=== PATIENT | female | born 1980 | race Caucasian/White ===

== ENCOUNTER → 2018-08-06 16:16 | Outpatient (CLI) | payer OTHER, SELFPAY | DX: Z23 Encounter for immunization (principal) | CPT/HCPCS: 90471; 90686 ==

== ENCOUNTER 2018-09-04 21:50 | Emergency (ER) | payer OTHER, SELFPAY ==
--- NOTE | 2018-09-04 22:01 | DI.CT.S_ITS ---
PROCEDURE: CT ABDOMEN PELVIS W CON INDICATIONS: abdominal pain, history of perforation and gastric bypass TECHNIQUE: After the administration of intravenous contrast, 5 mm thick sections acquired from the diaphragm to the symphysis. 5 mm coronal and sagittal reformats were acquired. For radiation dose reduction, the following was used: automated exposure control, adjustment of mA and/or kV according to patient size. COMPARISON: None. FINDINGS: Image quality: Excellent. ABDOMEN: Lung bases: Lung bases are clear. Heart size is normal. Solid organs: Liver is enlarged with steatosis.. Gallbladder has been removed. Biliary system is non dilated. Pancreas enhances normally. Spleen is normal in size and enhancement. No adrenal nodules. Right kidney is within the lower right pelvis. The left kidney is unremarkable Peritoneum and bowel: Bowel loops demonstrate normal wall thickness and caliber. No free fluid or air. Gastric surgical changes are present. Nodes and vessels: No retroperitoneal or mesenteric adenopathy by size criteria. Aorta and inferior vena cava are normal in size. Miscellaneous: No ventral hernias. PELVIS: Genitourinary: Bladder wall thickness is normal. Rim-enhancing focus of low attenuation within the left ovary measuring 23 mm. The uterus demonstrates lobulation. Miscellaneous: No inguinal hernias or adenopathy. Bones: No suspicious bony lesions. No vertebral body compression fractures. IMPRESSION: 1. Rim-enhancing low attenuation focus within the left ovary measuring 23 mm suggestive of cyst, possibly hemorrhagic. 2. Lobulations within the uterus, questionably fibroid. Dictated by: Apoorva Caraballo M.D. on 09/05/2018 at 7:10 Approved by: Apoorva Caraballo M.D. on 09/05/2018 at 7:14
--- NOTE | 2018-09-04 22:02 | DI.RAD.S_ITS ---
PROCEDURE: XR CHEST 1V INDICATIONS: chest pain TECHNIQUE: One view of the chest was acquired. COMPARISON: None. FINDINGS: Surgical changes and devices: None. Lungs and pleura: No pleural effusions or pneumothorax. Lungs are clear. Mediastinum: Mediastinal contours appear normal. Heart size is normal. Bones and chest wall: No suspicious bony lesions. Overlying soft tissues appear unremarkable. IMPRESSION: No acute pulmonary process. Dictated by: Apoorva Caraballo M.D. on 09/05/2018 at 7:06 Approved by: Apoorva Caraballo M.D. on 09/05/2018 at 7:07
[2018-09-04 22:05] VITALS: BP 127/72; PULSE 78; RESP 18; TEMP 37; O2SAT 100; BMI 32.3
--- NOTE | 2018-09-04 22:06 | ED_ITS ---
HPI - Abdominal Pain General Chief Complaint: Abdominal Pain Stated Complaint: chest pain Time Seen by Provider: 09/04/18 21:52 Source: patient and EMS Mode of arrival: EMS Limitations: no limitations History of Present Illness HPI narrative: Patient is a 38-year-old female who presents with abdominal pain and chest pain. She has a history of gastric bypass and perforated ulcer. She says this feels like her perforation. Been ongoing for about an hour and a half. Start epigastric pain is across her upper abdomen. It does radiate down to her mid abdomen and sometimes into her chest. No shortness of breath no nausea or vomiting. Her pain is much improved now. She has not hypertensive. Related Data Home Medications Medication Instructions Recorded Confirmed Carafate 1 tab PO DAILY 09/04/18 09/04/18 Singulair 10 mg PO DAILY 09/04/18 09/04/18 fluticasone-salmeterol [Advair 09/04/18 Diskus] pantoprazole 2 tab 09/04/18 trazodone 150 mg PO 09/04/18 Allergies Allergy/AdvReac Type Severity Reaction Status Date / Time NSAIDS (Non-Steroidal AdvReac Verified 09/04/18 22:04 Anti-Inflamma Review of Systems Review of Systems All systems reviewed & are unremarkable except as noted in HPI and below Constitutional Denies chills, Denies fever(s), Denies lethargy and Denies weakness Eyes Denies change in vision, Denies eye discharge, Denies irritation and Denies loss of vision Cardiovascular Reports chest pain, Denies syncope, Denies rapid heart rate, Denies edema, Denies dyspnea and Denies dyspnea on exertion Respiratory Denies cough, Denies dyspnea, Denies dyspnea on exertion and Denies wheezing Gastrointestinal Gastrointestinal: Reports as per HPI Genitourinary Denies hematuria, Denies flank pain, Denies urinary incontinence and Denies urinary urgency Musculoskeletal Denies back pain, Denies muscle weakness, Denies numbness and Denies tingling Integumentary/Breasts Denies pruritus, Denies erythema, Denies rash and Denies wounds Neurologic Denies syncope, Denies loss of vision, Denies numbness, Denies tingling and Denies weakness Allergic/Immunologic Denies wheezing [facility] Surgical History Gastric bypass status for obesity (Acute) Social History Smoking Status: Current every day smoker Exam Initial Vital Signs Initial Vital Signs: Vital Signs Temperature 98.6 F 09/04/18 22:05 Pulse Rate 78 09/04/18 22:05 Respiratory Rate 18 09/04/18 22:05 Blood Pressure 127/72 09/04/18 22:05 Pulse Oximetry 100 09/04/18 22:05 Const General: cooperative Orientation: alert, awake and oriented x3 HENMT Head: normal to inspection Eyes General: appearance normal, both eyes and all related structures Neck Neck: normal visual inspection, full ROM and no meningeal signs Chest Chest: normal inspection of the chest Resp Effort & Inspection: normal respiratory effort Auscultation: clear to auscultation bilaterally, no rales, no rhonchi and no wheezes Cardio Rate: regular rate Rhythm: regular rhythm Heart Sounds: S1 normal and S2 normal GI Inspection: normal to inspection Palpation: soft, No guarding, No rigid and tender (Epigastric area) Percussion: normal to percussion Skin General: no rashes or lesions noted Neuro General: alert, awake, oriented x3, oriented and CN's II-XI intact bilaterally Course Orders Ordered: ED Orders 09/04/18 22:01 CT abdomen pelvis w con Stat 09/04/18 22:02 XR chest 1V Stat EKG-12 Lead Stat 09/04/18 22:22 Complete Blood Count AUTO DIFF Stat Comprehensive Metabolic Panel Stat Lipase Stat Troponin & CK Cardiac Panel Stat Discontinued Medications Sodium Chloride (Normal Saline 0.9%) 1,000 mls @ 150 mls/hr IV CONT JESUS Last Infusion: 09/05/18 00:35 Dose: 150 mls/hr Admin: 09/04/18 22:11 Dose: 150 mls/hr Morphine Sulfate (Morphine) 2 mg IV NOW ONE Stop: 09/04/18 23:04 Last Admin: 09/04/18 23:10 Dose: 2 mg Pantoprazole Sodium (Protonix) 40 mg IV NOW ONE Stop: 09/04/18 22:02 Last Admin: 09/04/18 22:11 Dose: 40 mg Vital Signs - 8 hr 09/04/18 22:05 09/05/18 00:34 Temperature 98.6 F Pulse Rate 78 64 Respiratory Rate 18 18 Blood Pressure 127/72 Blood Pressure [Left Arm] 102/46 L Pulse Oximetry 100 100 MDM - Abdominal Pain Lab Data Attestation: I reviewed the patient's lab results. Result diagrams: 09/04/18 22:22 09/04/18 22:22 Lab Results 09/04/18 09/04/18 Range/Units 22:22 22:22 WBC 7.8 (4.5-11.0) X10^3/uL RBC 4.42 (4.0-5.2) X10^6/uL Hgb 12.8 (12.0-16.0) g/dL Hct 38.2 (36-46) % MCV 86.5 (80-100) fL MCH 29.0 (26-34) PG MCHC 33.5 (30-36) % RDW 13.2 (11.6-14.8) % Plt Count 210 (150-400) X10^3/uL Neut % (Auto) 56.6 (50-75) % Lymph % (Auto) 32.4 (25-40) % [place] % (Auto) 8.0 (3-14) % Eos % (Auto) 2.5 (2-4) % Baso % (Auto) 0.5 (0-2) % Neut # (Auto) 4400 (2102-1531) /uL Sodium 139 (137-145) mmol/L Potassium 4.4 (3.4-5.1) mmol/L Chloride 106 (98-107) mmol/L Carbon Dioxide 22 (22-32) mmol/L BUN 16 (7-17) mg/dL Creatinine 0.80 (0.52-1.04) mg/dL Estimated GFR > 60.0 (>60) mL/min BUN/Creatinine Ratio 20.0 (6-22) Glucose 91 (70-100) mg/dL Calcium 8.5 (8.4-10.2) mg/dL Total Bilirubin 0.3 (0.2-1.3) mg/dL AST 24 (14-36) IU/L ALT 22 (9-52) IU/L Alkaline Phosphatase 77 (38-126) U/L Total Creatine Kinase 48 (30-135) U/L CK-MB (CK-2) TNP CK-MB (CK-2) Rel Index TNP Troponin I < 0.012 (0.01-0.034) ng/mL Total Protein 6.6 (6.3-8.2) g/dL Albumin 3.8 (3.5-5.0) g/dL Globulin 2.8 (1.7-4.1) g/dL Albumin/Globulin Ratio 1.4 (1.0-2.8) Lipase 69 (23-300) U/L Point of care testing: Point of Care Testing Test Results Negative Urine Dip Bedside Urine Glucose Negative Bedside Urine Bilirubin - Negative Bedside Urine Ketone - Negative Urine Specific [place] 1.015 Bedside Urine Occult Blood - Negative Bedside Urine pH 6.0 Bedside Urine Protein - Negative Bedside Urine Urobilinogen - Negative Bedside Urine Nitrite - Negative Bedside Urine Leukocytes - Negative Esterase Imaging Data CT scan - abdomen: Radiologist's impression: radiology teacher report: 1.8 cm cyst on right ovary. 2 apparent cyst on left ovary route with largest measuring 2 cm. Uterus is with questionable 1.4 cm uterine fibroid. Pelvic ultrasound recommended. Low-lying pelvic kidney with hydronephrosis or renal calculi. Normal right ureter normal left kidney in normal position. Normal left ureter no bladder calculi. Normal appendix. Prior gastric bypass. Nonspecific bowel gas pattern with small bowel upper limits of normal size with several air fluid levels. MDM Narrative Medical decision making narrative: Patient overall is feeling better. Blood work and CT are within normal limits. CT does reveal multiple fluid filled loops of bowel but no obstruction, she does not have persistent nausea vomiting either. She was worried based history she is now feeling better. She also states that she took Protonix and Carafate prior to arrival. Discharge Plan Departure Patient Disposition: Home Clinical Impression: Abdominal pain Discharge Date/Time: 09/05/18 00:42 Interventions: ED Discharge Assessment Last Done: 09/05/18 00:43 Instructions: DI for Abdominal Pain-Adult Activity Restrictions/Additional Instructions: *You have been diagnosed with abdominal pain *What to do: At this time blood work and CT scan do not show any sign of obstruction or perforation. EKG and chest x-ray within normal *Continue to take medications as directed *Follow up with your primary care provider in 2-3 days *Return to ER if you should have worsening abdominal pain persistent vomiting any new, worsening or concerning symptoms Prescriptions: No Action trazodone 150 mg PO RF: 0 Singulair 10 mg PO DAILY RF: 0 fluticasone-salmeterol [Advair Diskus] 250-50 mcg/dose blister with device RF: 0 pantoprazole 20 mg tablet,delayed release (DR/EC) 2 tab RF: 0 Carafate 1 tab PO DAILY RF: 0 Referrals: Miscellaneous,Doctor, MD [Primary Care Provider] -
[2018-09-04] MEDS: PANTOPRAZOLE 40 MG VIAL IV (22:11)
[2018-09-04] MEDS: SODIUM CHLORIDE 0.9% 1,000 ML 150 ML IV (22:11)
[2018-09-04 22:30] LABS: Add Manual Diff / Slide Review NO; Basophils Percent Auto 0.5 % (0-2); Eosinophils Percent Auto 2.5 % (2-4); Hematocrit 38.2 % (36-46); Hemoglobin 12.8 g/dL (12.0-16.0); Lymphocytes Percent Auto 32.4 % (25-40); Mean Corpuscular HGB Conc 33.5 % (30-36); Mean Corpuscular Volume 86.5 fL (80-100); Neutrophils Absolute Auto 4400 /uL (3000-5900); Neutrophils Percent Auto 56.6 % (50-75); Platelet Count 210 X10^3/uL (150-400); Red Blood Cell Count 4.42 X10^6/uL (4.0-5.2); Red Cell Distribution Width 13.2 % (11.6-14.8); White Blood Cell Count 7.8 X10^3/uL (4.5-11.0)
[2018-09-04 22:41] LABS: Alanine Aminotransferase 22 IU/L (9-52); Albumin 3.8 g/dL (3.5-5.0); Albumin Globulin Ratio 1.4 (1.0-2.8); Alkaline Phosphatase 77 U/L (38-126); Aspartate Aminotransferase 24 IU/L (14-36); Bilirubin Total 0.3 mg/dL (0.2-1.3); Blood Urea Nitrogen 16 mg/dL (7-17); Calcium 8.5 mg/dL (8.4-10.2); Carbon Dioxide 22 mmol/L (22-32); Chloride 106 mmol/L (98-107); Creatine Kinase 48 U/L (30-135); Estimated Glomerular Filt Rate > 60.0 mL/min (>60); Globulin 2.8 g/dL (1.7-4.1); Glucose 91 mg/dL (70-100); HEMOLYSIS 28 (0-50); Lipase 69 U/L (23-300); Potassium 4.4 mmol/L (3.4-5.1); Sodium 139 mmol/L (137-145); Total Protein 6.6 g/dL (6.3-8.2)
--- NOTE | 2018-09-04 22:50 | PC.NURSE ---
entered room to do pt check. Pt sitting upright on bed holding ABD. Pt states her CP has resumed. EKG obtained and Dr. Gamble notified. No new orders at this time.
[2018-09-04 22:56] LABS: Troponin I < 0.012 ng/mL (0.01-0.034)
[2018-09-04] MEDS: MORPHINE 2 MG/ML INJ IV (23:10)
[2018-09-05 00:34] VITALS: BP 102/46; PULSE 64; RESP 18; O2SAT 100
== END 2018-09-05 00:42 | disposition home or self-care (01) ==
PROVIDERS: Emergency Provider Emergency Medicine
DX: R10.9 Unspecified abdominal pain (principal); R07.89 Other chest pain
CPT/HCPCS: 36415; 71045; 74177; 80053; 81003; 81025; 82550; 83690; 84484; 85025; 93005; 96361; 96374; 96375; 99283; 99285; C9113; J2270; Q9967

== ENCOUNTER → 2019-08-12 15:32 | Outpatient (CLI) | payer OTHER, SELFPAY ==
--- NOTE | 2019-08-12 | DI.MRI.S_ITS ---
PROCEDURE: MR SHOULDER LT WO/W CON INDICATIONS: Localized swelling, mass and lump, left trapezius TECHNIQUE: Noncontrast oblique coronal T1 spin echo and T2 fast spin echo with fat saturation, oblique sagittal T1 spin echo and T2 fast spin echo with fat saturation, axial T1 spin echo and T2 fast spin echo with fat saturation through the shoulder. Post-contrast oblique coronal, oblique sagittal, and axial T1 spin echo with fat saturation through the shoulder. COMPARISON: None. FINDINGS: Image quality: Excellent. Marrow signal demonstrates normal appearance, without evidence of fracture or focal lesion. Mild left shoulder joint degeneration, with mild subacromial-subdeltoid bursitis. In the area marked by the fiducial on the skin surface, no underlying soft tissue mass is seen. No focal fluid collection identified. No abnormal enhancement. Theoretically, cannot entirely exclude unencapsulated occult lipoma. Trapezius appears grossly unremarkable in signal intensity and size. IMPRESSION: No discrete focal mass or fluid collection in the area marked by the skin fiducial. No abnormal enhancement or signal abnormality. Unremarkable appearance of the trapezius muscle. Dictated by: Otis Nick M.D. on 08/13/2019 at 9:39 Approved by: Otis Nick M.D. on 08/13/2019 at 9:45
== END ==
PROVIDERS: PCP Registered Nurse Diabetes Educator; Visit Provider Registered Nurse Diabetes Educator
DX: R22.32 Localized swelling, mass and lump, left upper limb (principal); M19.012 Primary osteoarthritis, left shoulder; M75.52 Bursitis of left shoulder
CPT/HCPCS: 73223; A9579

== ENCOUNTER → 2019-10-30 13:31 | Outpatient (CLI) | payer OTHER, SELFPAY ==
--- NOTE | 2019-10-30 | DI.MRI.S_ITS ---
PROCEDURE: MR HEAD/BRAIN WO CON INDICATIONS: Trigeminal neuralgia TECHNIQUE: Noncontrast axial T1 spin echo, axial T2 fast spin echo, sagittal and axial FLAIR, coronal T2 fast spin echo, axial gradient echo, axial diffusion and ADC through the brain. COMPARISON: None. FINDINGS: Image quality: Excellent. CSF Spaces: Basal cisterns are patent. No extra-axial fluid collections. Ventricles are normal in size and shape. Brain: No intracranial masses or hemorrhage. [place]/white matter interface is normal. Brainstem appears normal. Diffusion-weighted images demonstrate no acute ischemic insult. No chronic ischemic insults. Normal intravascular flow voids are present. No suspicious mass lesion, inflammation, or suspicious vascular lesion identified in the visualized course of the bilateral trigeminal nerves. Skull and face: Calvarium has normal marrow signal. Orbits appear normal. Sinuses: There is mild mucosal thickening of the right maxillary sinus as well as a few scattered ethmoid sinuses. There is also fluid noted within multiple left mastoid air cells without surrounding edema or abnormal marrow signal intensity. Overlying soft tissue appear within normal limits. IMPRESSION: 1. Unremarkable noncontrast MRI evaluation of the brain. No acute abnormalities identified. No suspicious mass or mass effect. 2. Right maxillary and scattered ethmoid sinus disease. 3. Fluid noted within the left mastoid air cells possibly related to mastoiditis. No MRI evidence for acute inflammatory changes surrounding the left mastoid air cells. 4. No mass, mass effect, or suspicious vascular abnormalities identified along the visualized course of the bilateral trigeminal nerve. If there is persistent clinical concern for trigeminal neuralgia, consider repeating imaging with addition of intravenous contrast. Dictated by: Neftaly Negron M.D. on 11/01/2019 at 13:16 Approved by: Neftaly Negron M.D. on 11/01/2019 at 13:25
== END ==
PROVIDERS: PCP Family Medicine; Visit Provider Family Medicine
DX: G50.0 Trigeminal neuralgia (principal); J32.8 Other chronic sinusitis
CPT/HCPCS: 70551

== ENCOUNTER → 2019-11-15 08:08 | Outpatient (CLI) | payer OTHER, SELFPAY ==
--- NOTE | 2019-11-15 | DI.MRI.S_ITS ---
PROCEDURE: MR HEAD/BRAIN W CON INDICATIONS: Acute mastoiditis without complications TECHNIQUE: Noncontrast sagittal and axial FLAIR, axial and coronal T2 fast spin echo, axial VIBE, axial gradient echo, axial diffusion and ADC through the brain. After the administration of contrast, axial and coronal VIBE with fat saturation through the brain. COMPARISON: [facility], , MR HEAD/BRAIN WO CON, 10/30/2019, 14:22. FINDINGS: Image quality: Excellent. CSF spaces: Ventricles are normal in size and shape. Basal cisterns are patent. No extra-axial fluid collections. Brain: No intracranial bleeds or mass effects. [place]ner-white matter interface appears intact. No suspicious white matter lesions. No abnormal intracranial enhancement. Diffusion weighted images show no acute ischemic insults. Brainstem appears normal. Normal intravascular flow voids are present. Skull and face: Calvarial marrow signal is normal. Orbits appear normal. Sinuses: Sinuses and mastoids are show no evidence of inflammatory change extending into the adjacent soft tissues are meningeal surfaces. Note is again made of both left-sided mastoiditis and right-sided maxillary sinusitis, with no appreciable worsening at the left mastoid air cells but with interval development of mild worsening of mucosal thickening and development of a small air-fluid level at the right maxillary sinus. IMPRESSION: No sign of meningitis or encephalitis. Right-sided mastoiditis is stable in appearance from the comparison study 10/30/19. Right-sided maxillary sinusitis has mildly worsened in terms of both mucosal thickening and development of a small air-fluid level in that sinus cavity. Dictated by: Louis Alexis M.D. on 11/15/2019 at 10:54 Approved by: Louis Alexis M.D. on 11/15/2019 at 10:57
== END ==
PROVIDERS: PCP Family Medicine; Visit Provider Family Medicine
DX: H70.001 Acute mastoiditis without complications, right ear (principal); J32.0 Chronic maxillary sinusitis
CPT/HCPCS: 70552

== ENCOUNTER → 2021-01-28 08:19 | Outpatient (CLI) | payer OTHER, SELFPAY ==
--- NOTE | 2021-01-28 08:22 | DI.MRI.S_ITS ---
PROCEDURE: MR CERVICAL SPINE WO CON INDICATIONS: Pain in left shoulder TECHNIQUE: Noncontrast sagittal T1 spin echo and T2 fast spin echo, sagittal STIR, foraminal oblique sagittal T2 fast spin echo, and axial gradient echo or T2 fast spin echo through the cervical spine. COMPARISON: [facility], CR, XR CERVICAL SPINE W OBL 4 VW, 03/17/2017, 11:08. FINDINGS: Image quality: Excellent. Alignment and Curvature: There is normal bony alignment. Bone Marrow: Marrow demonstrates normal overall signal. Spinal Cord: Visualized spinal cord has normal size and signal. No cerebellar tonsillar herniation. Regional Soft Tissues: No paravertebral masses. Prevertebral soft tissues are normal in thickness. C2-C3: No spinal canal or neural foraminal stenosis. C3-C4: No spinal canal or neural foraminal stenosis. C4-C5: No spinal canal or neural foraminal stenosis. C5-C6: No spinal canal stenosis. Uncovertebral spurring on the left contributes to mild neural foraminal narrowing. C6-C7: Posterior disc osteophyte complex without spinal canal stenosis or mass effect upon the cord. Facet and [id number] hypertrophy contribute to mild left greater than right neural foraminal stenosis. C7-T1: No spinal canal or neural foraminal stenosis. IMPRESSION: Mild degenerative changes at C5-C6 and C6-C7. Dictated by: Pete Norman M.D. on 01/29/2021 at 9:04 Approved by: Pete Norman M.D. on 01/29/2021 at 9:17
== END ==
PROVIDERS: PCP Internal Medicine; Referring Provider Internal Medicine; Visit Provider Internal Medicine
DX: M50.30 Other cervical disc degeneration, unspecified cervical region (principal); M25.512 Pain in left shoulder
CPT/HCPCS: 72141

== ENCOUNTER → 2021-02-11 14:10 | Outpatient (CLI) | payer OTHER, SELFPAY ==
--- NOTE | 2021-02-11 14:11 | DI.MRI.S_ITS ---
PROCEDURE: MR SHOULDER LT WO CON INDICATIONS: Pain in left shoulder TECHNIQUE: Noncontrast oblique coronal T2 fast spin echo with fat saturation, oblique sagittal T1 spin echo and T2 fast spin echo with fat saturation, axial T1 spin echo and T2 fast spin echo with fat saturation through the shoulder. COMPARISON: None. FINDINGS: Image quality: Degraded by technical factors/body habitus. Rotator cuff: The supraspinatus, infraspinatus, and subscapularis tendons appear intact throughout. Sagittal images demonstrate no muscle atrophy. Bones and bursae: No bone marrow contusions or fractures. No acromioclavicular joint degeneration. The acromion demonstrates conventional anatomy, without an os acromiale. No pathologic subacromial-subdeltoid or subcoracoid bursal fluid is present. Capsule and soft tissues: Labrum is grossly unremarkable The long head of the biceps tendon demonstrates normal location and morphology. The rotator interval appears normal, without fibrosis. The coracohumeral ligament is normal in thickness. IMPRESSION: Negative examination. No rotator cuff tear. Dictated by: Lisset Nichols M.D. on 02/12/2021 at 11:29 Approved by: Lisset Nichols M.D. on 02/12/2021 at 11:31
== END ==
PROVIDERS: PCP Internal Medicine; Referring Provider Internal Medicine; Visit Provider Internal Medicine
DX: M25.512 Pain in left shoulder (principal)
CPT/HCPCS: 73221

== ENCOUNTER → 2022-04-08 17:00 | Outpatient (CLI) | payer OTHER, SELFPAY ==
--- NOTE | 2022-04-08 17:02 | DI.MRI.S_ITS ---
PROCEDURE: MR SHOULDER RT WO CON INDICATIONS: RIGHT SHOULDER PAIN TECHNIQUE: Noncontrast oblique coronal T2 fast spin echo with fat saturation, oblique sagittal T1 spin echo and T2 fast spin echo with fat saturation, axial T1 spin echo and T2 fast spin echo with fat saturation through the shoulder. COMPARISON: None. FINDINGS: Image quality: Excellent. Rotator cuff: Mild supraspinatus and infraspinatus tendinosis. The teres minor and subscapularis tendons are intact. There is no significant rotator cuff muscle atrophy. Bones and bursae: No acute trabecular bone injury. Areas of cellular marrow are seen throughout the visualized osseous structures, which can be physiologic in a premenopausal woman. No significant glenohumeral osteoarthrosis. A benign bone island is seen in the glenoid. [id number] degenerative changes are seen at the acromioclavicular joint with marginal osteophytes and mild subchondral cystic changes. No significant subacromial bursal fluid. There is no significant glenohumeral joint effusion. Capsule and soft tissues: No displaced labral tear is seen. The proximal portion of the biceps long head tendon is intact. There is partial effacement of the fat in the rotator interval. The inferior glenohumeral ligament is mildly thickened. IMPRESSION: 1. Mild supraspinatus and infraspinatus tendinosis. No significant rotator cuff tendon tear is seen. 2. 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 3. No displaced labral tear is seen. MR arthrogram could be performed for more sensitive evaluation if symptoms persist or there is continued clinical concern. 4. Areas of cellular marrow are seen throughout the visualized osseous structures, which may be physiologic. However, clinical correlation is recommended to exclude anemia. 5. Partial effacement of the rotator interval fat and mild thickening of the inferior glenohumeral ligament are nonspecific, but can be seen in the setting of the clinical syndrome of adhesive capsulitis. Dictated by: Dm Finley M.D. on 04/09/2022 at 8:52 Approved by: Dm Finley M.D. on 04/09/2022 at 9:00
== END ==
PROVIDERS: PCP Student in an Organized Health Care Education/Training Program; Referring Provider Student in an Organized Health Care Education/Training Program; Visit Provider Student in an Organized Health Care Education/Training Program
DX: M19.011 Primary osteoarthritis, right shoulder (principal); M25.511 Pain in right shoulder
CPT/HCPCS: 73221

== ENCOUNTER 2022-05-09 08:38 | Emergency (ER) | payer OTHER, SELFPAY ==
[2022-05-09 08:52] VITALS: BP 129/70; PULSE 91; RESP 18; TEMP 36.9; O2SAT 100; BMI 34.2
--- NOTE | 2022-05-09 09:03 | DI.US.S_ITS ---
PROCEDURE: US PERIPH VENOUS LOW EXTREM RT INDICATIONS: Right lower extremity cramping, please evaluate for DVT TECHNIQUE: Real-time imaging, as well as color and pulse Doppler interrogation, were performed of the lower extremity deep veins from the inguinal ligament to the popliteal fossa. COMPARISON: None. FINDINGS: The common femoral, femoral and popliteal veins are normally compressible, and free of intraluminal thrombus. Color and pulse Doppler demonstrate normal phasic intraluminal flow. There is normal augmentation response to distal compression maneuver. IMPRESSION: Negative for deep venous thrombosis. Dictated by: Maynor Garnett M.D. on 05/09/2022 at 8:27 Approved by: Maynor Garnett M.D. on 05/09/2022 at 8:28
[2022-05-09 09:40] LABS: Add Manual Diff / Slide Review NO; Basophils Absolute Auto 100 /uL (0-100); Basophils Percent Auto 0.9 % (0-2); Eosinophils Absolute Auto 200 /uL (0-450); Eosinophils Percent Auto 2.4 % (2-4); Hematocrit 35.2 % (36-46); Hemoglobin 11.5 g/dL (12.0-16.0); Lymphocytes Absolute Auto 1800 /uL (1100-4500); Lymphocytes Percent Auto 27.5 % (25-40); Mean Corpuscular HGB Conc 32.7 % (30-36); Mean Corpuscular Volume 76.6 fL (80-100); Monocytes Absolute Auto 600 /uL (0-900); Neutrophils Absolute Auto 4000 /uL (1500-7000); Neutrophils Percent Auto 60.2 % (50-75); Platelet Count 258 X10^3/uL (150-400); Red Blood Cell Count 4.59 X10^6/uL (4.0-5.2); Red Cell Distribution Width 15.8 % (11.6-14.8); White Blood Cell Count 6.6 X10^3/uL (4.5-11.0)
[2022-05-09 09:49] LABS: D Dimer 265 ng/mL (<230)
[2022-05-09 09:50] LABS: Alanine Aminotransferase 15 IU/L (<35); Albumin 4.3 g/dL (3.5-5.0); Albumin Globulin Ratio 1.3 (1.0-2.8); Alkaline Phosphatase 66 U/L (38-126); Aspartate Aminotransferase 23 IU/L (14-36); Bilirubin Total 0.5 mg/dL (0.2-1.3); Blood Urea Nitrogen 12 mg/dL (7-17); Calcium 8.7 mg/dL (8.4-10.2); Carbon Dioxide 25 mmol/L (22-32); Chloride 106 mmol/L (98-107); Estimated Glomerular Filt Rate > 60 mL/min (>60); Globulin 3.2 g/dL (1.7-4.1); Glucose 73 mg/dL (70-100); HEMOLYSIS 34 (0-50); Potassium 4.4 mmol/L (3.4-5.1); Sodium 140 mmol/L (137-145); Total Protein 7.5 g/dL (6.3-8.2)
--- NOTE | 2022-05-09 11:40 | ED_ITS ---
HPI - Extremity Problem General Chief complaint: Extremity Problem,Nontraumatic Stated complaint: TNC sent poss. dvt Time Seen by Provider: 05/09/22 11:39 Source: patient Mode of arrival: Ambulatory History of Present Illness HPI Narrative: 41F smoker with history of GERD and asthma presents with a chief complaint of a relatively sudden onset right calf pain over the course of the night. She states she is had no injury or overuse and denies any redness but has significant pain that seems to be worse with ambulation or palpation. Add itionally she has pain in her lateral thigh but denies any low back issues. She has no dysuria, frequency or urgency. She denies any loss of control of bowel or bladder, she has no lower extremity weakness. She does not take blood thinners. She states that additionally she had COVID a few weeks ago and this morning had significant shortness of breath and cough and even might have had blood in her sputum at 1 point. She was seen at the walk-in clinic and sent here for evaluation Related Data Home Medications Medication Instructions Recorded Confirmed Carafate 1 tab PO DAILY 09/04/18 05/09/22 Singulair 10 mg PO DAILY 09/04/18 05/09/22 fluticasone 250 mcg-salmeterol 50 09/04/18 05/09/22 mcg/dose blistr powdr for inhalation pantoprazole 20 mg tablet,delayed 2 tab 09/04/18 05/09/22 release trazodone 150 mg PO 09/04/18 05/09/22 Allergies Allergy/AdvReac Type Severity Reaction Status Date / Time NSAIDS (Non-Steroidal AdvReac Verified 05/09/22 08:19 Anti-Inflamma Review of Systems Review of Systems Narrative: GENERAL: Denies chills, fatigue, malaise, fever, sweats. HEENT: Denies sinus pain, ear pain, sore throat, difficulty swallowing, dizziness. RESPIRATORY: See HPI. CARDIOVASCULAR: See HPI GASTROINTESTINAL: Denies nausea, vomiting, abdominal pain, diarrhea, constipation, melena. : Denies dysuria, frequency, incontinence, hematuria, urinary retention. MUSCULOSKELETAL: denies weakness, joint pain, or bony pain SKIN: Denies rash, skin lesions, or other NEUROLOGIC: Denies weakness, headache, numbness, change in speech, confusion, seizures, incoordination. PSYCHIATRIC: No concerning psychosocial issues. 12 point review of systems is negative except for those stated above Patient History Medical History (Updated 05/09/22 @ 13:05 by Todd Wilburn DO) Asthma Fibromyalgia Hernia with strangulation Perforated gastric ulcer Surgical History Gastric bypass status for obesity Social History Smoking Status: Current every day smoker Smoking Status: Current every day smoker alcohol intake frequency: other Substance Use Type: does not use Exam Narrative Exam Narrative: GENERAL: [41] year old patient appears stated age. Well-developed patient, in mild distress. HEAD: Atraumatic. Normocephalic. EYES: Pupils equal round and reactive. Extraocular motions intact. No scleral icterus. No injection or drainage. ENT: Nose without bleeding, purulent drainage. Throat without erythema, tonsillar hypertrophy or exudate. Airway patent. NECK: Trachea midline. Non tender CARDIOVASCULAR: Regular rate and rhythm without murmurs, gallops, or rubs. RESPIRATORY: Clear to auscultation. Breath sounds equal bilaterally. No wheezes, rales, or rhonchi. Dry hacking cough with deep breath GASTROINTESTINAL: Abdomen soft, non-tender, nondistended. EXTREMITIES: Pain on palpation of right calf, increased with passive or active dorsiflexion. BACK: Nontender without deformity or crepitance. No flank tenderness. NEURO: AOx3. SKIN: No rash or erythema of visible areas Initial Vital Signs Initial Vital Signs: Vital Signs Temperature 98.4 F 05/09/22 08:52 Pulse Rate 91 H 05/09/22 08:52 Respiratory Rate 18 05/09/22 08:52 Blood Pressure 129/70 05/09/22 08:52 Pulse Oximetry 100 05/09/22 08:52 Oxygen Delivery Method 05/09/22 08:52 Course Orders Ordered: ED Orders 05/09/22 09:03 US periph venous low extrem rt Stat 05/09/22 09:32 CMP [Comprehensive Metabolic Panel] Stat Complete Blood Count AUTO DIFF Stat D Dimer Stat 05/09/22 11:46 CT angio chest PE protocol Stat Vital Signs Vital signs: Vital Signs - 8 hr 05/09/22 08:52 Temperature 98.4 F Pulse Rate 91 H Respiratory Rate 18 Blood Pressure 129/70 Pulse Oximetry 100 Oxygen Delivery Method Room Air MDM - Extremity (Nontraumatic) Lab Data Result diagrams: 05/09/22 09:32 05/09/22 09:32 Labs: Lab Results 05/09/22 05/09/22 05/09/22 Range/Units 09:32 09:32 09:32 WBC 6.6 (4.5-11.0) X10^3/uL RBC 4.59 (4.0-5.2) X10^6/uL Hgb 11.5 L (12.0-16.0) g/dL Hct 35.2 L (36-46) % MCV 76.6 L (80-100) fL MCH 25.0 L (26-34) PG MCHC 32.7 (30-36) % RDW 15.8 H (11.6-14.8) % Plt Count 258 (150-400) X10^3/uL Neut % (Auto) 60.2 (50-75) % Lymph % (Auto) 27.5 (25-40) % Levy % (Auto) 9.0 (3-14) % Eos % (Auto) 2.4 (2-4) % Baso % (Auto) 0.9 (0-2) % Neut # (Auto) 4000 (3772-3127) /uL Lymph # (Auto) 1800 (9253-8748) /uL Levy # (Auto) 600 (0-900) /uL Eos # (Auto) 200 (0-450) /uL Baso # (Auto) 100 (0-100) /uL D-Dimer 265 H (<230) ng/mL Sodium 140 (137-145) mmol/L Potassium 4.4 (3.4-5.1) mmol/L Chloride 106 (98-107) mmol/L Carbon Dioxide 25 (22-32) mmol/L BUN 12 (7-17) mg/dL Creatinine 0.80 (0.52-1.04) mg/dL Estimated GFR > 60 (>60) mL/min BUN/Creatinine Ratio 15.0 (6-22) Glucose 73 (70-100) mg/dL Calcium 8.7 (8.4-10.2) mg/dL Total Bilirubin 0.5 (0.2-1.3) mg/dL AST 23 (14-36) IU/L ALT 15 (<35) IU/L Alkaline Phosphatase 66 (38-126) U/L Total Protein 7.5 (6.3-8.2) g/dL Albumin 4.3 (3.5-5.0) g/dL Globulin 3.2 (1.7-4.1) g/dL Albumin/Globulin Ratio 1.3 (1.0-2.8) Imaging Data CT scan - chest: Radiologist's Impression: Close Chest CTA (Signed) Jacki Bee - 05/09/22 Vascular Ultrasound (Signed) Maynor Garnett - 05/09/22 Shoulder MRI (Signed) Dm Finley - 04/08/22 Shoulder MRI (Signed) Lisset Nichols - 02/11/21 Cervical Spine MRI (Signed) Pete Norman - 01/28/21 Brain MRI (Addendum) Louis Alexis - 11/15/19 Brain MRI (Signed) Neftaly Negron - 10/30/19 Shoulder MRI (Signed) Otis Nick - 08/12/19 Chest X-Ray (Signed) Apoorva Caraballo - 09/04/18 Abdomen/Pelvis CT (Signed) Apoorva Caraballo - 09/04/18 [place] [address] CT Scan Report Signed Patient: Adriana Vieyra MR#: [id number] : 1980 Acct:[id number] Age/Sex: 41 / F Date of Service: 05/09/22 Loc: ED Accession Number: [id number] ?? Procedure: CT angio chest PE protocol Ordering Provider: Todd Wilburn D.O. PROCEDURE:? CT ANGIO CHEST PE PROTOCOL ? INDICATIONS:? chest pain, hemoptysis, elevated Dimer ? TECHNIQUE:? After the administration of intravenous contrast, 2 mm thick sections acquired from the pulmonary apices to the posterior costophrenic angles.? 3-dimensional maximum intensity projection (MIP) coronal and sagittal reformats were then acquired through the thorax.? For radiation dose reduction, the following was used:? automated exposure control, adjustment of mA and/or kV according to patient size.? ? COMPARISON:? [facility], CR, XR CHEST 1V, 09/04/2018, 22:29. ? FINDINGS:? Image quality:? Excellent.? ? Pulmonary arteries:? Pulmonary arteries are normal in size, and demonstrate no intraluminal filling defects to suggest central pulmonary embolism.? ? Lungs and pleura:? Lungs are clear.? No pleural effusions or pneumothorax.? Central and peripheral airways are patent.? ? Mediastinum:? Heart size is normal, without pericardial effusion.? No mediastinal or hilar adenopathy.? Thoracic aorta is normal in caliber and enhancement.? Esophagus is normal in caliber, without hiatal hernia.? ? Bones and chest wall:? No suspicious bony lesions.? Ribs and thoracic spine appear intact throughout.? Thyroid gland is normal.? No axillary or supraclavicular adenopathy.? ? Abdomen:? Visualized upper abdominal solid organs appear normal in the early arterial phase of enhancement.? ? IMPRESSION:? ? 1. No evidence for pulmonary embolism. 2. No acute cardiopulmonary process.? ? ? Dictated by: Jacki Bee M.D. on 05/09/2022 at 12:41 ? ? Approved by: Jacki Bee M.D. on 05/09/2022 at 12:46 Discharge Plan Departure Patient Disposition: Home Clinical Impression: Pain of right calf Instructions: DI for Leg Pain Activity Restrictions/Additional Instructions: *You have been diagnosed with [right lower extremity pain without evidence of infection or DVT. Also as we discussed the CT scan of your chest shows no evidence of pulmonary embolism, pneumonia or other abnormal finding that would require a specific or immediate treatment] *What to do: *Please continue to take your regular medications as directed. [ ] New medication prescriptions sent to your pharmacy: [ ] [ ] New medication written as a paper prescription [x ] No new medications given *Please follow up with your primary care provider in 2-3 days, call for an appointment. Let them know you were seen in the Emergency Department and that we ask that you be seen in follow up. We will electronically transmit a record of today's note if your PCP is in our system *If you do not have a primary care provider please contact the [facility] Resource line at [phone]. They will ask some questions about your medical history and help get you set up with a doctor in the community. *Return to Emergency Department if you should have any new, worsening or concerning symptoms, such as [fever greater than 101 F, shaking chills, worsening pain, persistent vomiting or other bothersome symptoms] Prescriptions: No Action trazodone 150 mg PO Singulair 10 mg PO DAILY fluticasone propion-salmeterol [Advair Diskus] 250-50 mcg/dose blister with device pantoprazole 20 mg tablet,delayed release (DR/EC) 2 tab Carafate 1 tab PO DAILY Referrals: Aly Cisneros DO [Primary Care Provider] -
--- NOTE | 2022-05-09 11:46 | DI.CT.S_ITS ---
PROCEDURE: CT ANGIO CHEST PE PROTOCOL INDICATIONS: chest pain, hemoptysis, elevated Dimer TECHNIQUE: After the administration of intravenous contrast, 2 mm thick sections acquired from the pulmonary apices to the posterior costophrenic angles. 3-dimensional maximum intensity projection (MIP) coronal and sagittal reformats were then acquired through the thorax. For radiation dose reduction, the following was used: automated exposure control, adjustment of mA and/or kV according to patient size. COMPARISON: [facility], CR, XR CHEST 1V, 09/04/2018, 22:29. FINDINGS: Image quality: Excellent. Pulmonary arteries: Pulmonary arteries are normal in size, and demonstrate no intraluminal filling defects to suggest central pulmonary embolism. Lungs and pleura: Lungs are clear. No pleural effusions or pneumothorax. Central and peripheral airways are patent. Mediastinum: Heart size is normal, without pericardial effusion. No mediastinal or hilar adenopathy. Thoracic aorta is normal in caliber and enhancement. Esophagus is normal in caliber, without hiatal hernia. Bones and chest wall: No suspicious bony lesions. Ribs and thoracic spine appear intact throughout. Thyroid gland is normal. No axillary or supraclavicular adenopathy. Abdomen: Visualized upper abdominal solid organs appear normal in the early arterial phase of enhancement. IMPRESSION: 1. No evidence for pulmonary embolism. 2. No acute cardiopulmonary process. Dictated by: Jacki Bee M.D. on 05/09/2022 at 12:41 Approved by: Jacki Bee M.D. on 05/09/2022 at 12:46
[2022-05-09 13:12] VITALS: BP 120/74; PULSE 85; RESP 18; O2SAT 100
== END 2022-05-09 13:13 | disposition home or self-care (01) ==
PROVIDERS: Emergency Provider Emergency Medicine; PCP Student in an Organized Health Care Education/Training Program
DX: M79.604 Pain in right leg (principal); R07.9 Chest pain, unspecified
CPT/HCPCS: 71275; 80053; 85025; 85379; 93971; 99283; 99284; Q9967